=== PATIENT | female | born 1950 | race Caucasian/White ===

== ENCOUNTER 2021-02-25 16:09 | Inpatient (IN) | payer MEDICARE, BC ==
[~2021-02-25] VITALS: Ht 162.6 cm; Wt 53.5 kg
--- NOTE | 2021-02-25 16:25 | NUR ---
PT IS IN ROOM #2B. DR BACA EVALUATED THE PT.
[2021-02-25] MEDS ORDERED: ALPR0.5T8 PO (17:06)
[2021-02-25] MEDS ORDERED: LACT1CAP71 PO (17:06)
[2021-02-25] MEDS ORDERED: ASCO500T10 PO (17:06)
[2021-02-25] MEDS ORDERED: MAGN296S70 PO (17:06)
[2021-02-25] MEDS ORDERED: MULT-1251 PO (17:06)
[2021-02-25] MEDS ORDERED: FLUT16SP16 NS (17:06)
[2021-02-25] MEDS ORDERED: GABA600T12 PO ×2 (17:06)
[2021-02-25] MEDS ORDERED: DEXL60CA3 PO (17:06)
[2021-02-25] MEDS ORDERED: KETAMINE ×2 (17:06)
[2021-02-25] MEDS ORDERED: BUTA1TAB52 PO (17:06)
[2021-02-25] MEDS ORDERED: SUCR1ORA PO (17:06)
[2021-02-25] MEDS ORDERED: MIRA50TA PO (17:06)
[2021-02-25] MEDS ORDERED: CARB200T PO (17:06)
[2021-02-25] MEDS ORDERED: LANS30CA54 PO (17:06)
[2021-02-25] MEDS ORDERED: MONT10TA33 PO (17:06)
[2021-02-25] MEDS ORDERED: PLEC3TAB2 PO (17:06)
[2021-02-25] MEDS ORDERED: DIAZ10TA4 PO (17:06)
[2021-02-25] MEDS ORDERED: MIRT-94 PO (17:06)
[2021-02-25] MEDS ORDERED: ESZO3TAB27 PO (17:06)
[2021-02-25] MEDS ORDERED: LISD50CA2 PO (17:06)
[2021-02-25] MEDS ORDERED: LEVO5TAB13 PO (17:06)
[2021-02-25] MEDS ORDERED: CARI350T27 PO (17:06)
[2021-02-25] MEDS ORDERED: QUET50TA15 PO (17:06)
[2021-02-25] MEDS ORDERED: PILO5TAB10 PO (17:06)
[2021-02-25] MEDS ORDERED: ESCI20TA PO (17:06)
[2021-02-25] MEDS ORDERED: CYCL30DR EACHEYE (17:06)
[2021-02-25] MEDS ORDERED: FAMO40TA7 PO (17:06)
[2021-02-25] MEDS ORDERED: HYDR-3641 PO (17:06)
[2021-02-25] MEDS ORDERED: AMIT10TA6 PO (17:06)
[2021-02-25] MEDS ORDERED: OXYC-133 PO (17:06)
[2021-02-25] MEDS ORDERED: CLON0.1T PO (17:06)
--- NOTE | 2021-02-25 17:12 | NUR ---
REPORT WAS GIVEN TO MHU RN BY BEBE TURNER. PT WAS TRANSFERED TO U ROOM #145.
[2021-02-25 17:32] VITALS: BP 148/80
[2021-02-25] MEDS ORDERED: MAG HYDROX/AL HYDROX/SIMETH 30 ML LIQUID UDC PO PRN (17:45)
[2021-02-25] MEDS ORDERED: SUCRALFATE 1 G/10 ML LIQUID UDC PO PRN (18:15)
[2021-02-25] MEDS ORDERED: BUTALB/ACETAMINOPHEN/CAFFEINE CAPSULE PO PRN (18:15)
--- NOTE | 2021-02-25 18:31 | NUR ---
ADMISSION NOTE: Patient was admitted to MHU room 145-B from the ER accompanied by nursing staff in a wheelchair. Patient admitted with her own FWW, patient's belongings and valuables were inventoried with patient and placed in contraband locker. Patient admitted with multiple bottles of narcotic analgesic medication which was inventoried by nursing staff, sealed in envelop, and sent to pharmacy. Patient's skin assessment completed by nursing staff, skin is intact. Patient provided with patient's rights handbook and 5150 hold advisement. Upon uumb-dx-sosz assessment, patient is highly anxious, restless, visibly shaking, and for this reason states that she is unable to sign paperwork and unable to eat food and drink fluids because she "feels sick". Patient denies suicidal and homicidal ideation. Patient states she has multiple chronic medical conditions that "are the worst that any man can suffer from" and for these reasons is depressed. Patient is able to contract for safety. Patient is alert and oriented x3. She denies hallucinations of any type. Patient denies a current or history of tobacco use. Denies recreation drug use. Patient is currently being prescribed multiple narcotic medication and benzodiazepine medications from her primary doctor for chronic pain and anxiety.
[2021-02-25 20:14] VITALS: BP 138/52
[2021-02-25] MEDS: LORAZEPAM 1 MG TABLET PO PRN (20:15)
[2021-02-25] MEDS: FAMOTIDINE 20 MG TABLET PO SCH (20:15)
[2021-02-25] MEDS: CULTURELLE CAPSULE PO SCH (20:15)
--- NOTE | 2021-02-25 20:20 | NUR ---
RECEIVED PATIENT IN HER ROOM IN BED. SHE IS NOTED AWAKE A/O X 2, SHE IS NOTED WITH LOW MOOD, ANXIOUS. AFFECT IS BLUNTED. SHE IS NOTED WITHDRAWN. SHE STATED, "I AM HERE BECAUSE I GOT OUT OF MY HOUSE". WHEN ASKED WHY SHE DID IT, SHE SAID, "MANY REASONS BUT I DON'T WANT TO TELL YOU". PATIENT IS REASSURED FOR HER SAFETY. HE WAS GIVEN ATIVAN 1MG PO PRN FOR ANXIETY. SHE WAS OFFERED PO FLUIDS AND SNACKS. V/S STABLE, WILL CONTINUE TO MONITOR.
--- NOTE | 2021-02-25 22:30 | NUR ---
RADIOLOGY STAFF IN THE UNIT READY TO TAKE X-RAY OF PATIENT LEFT FOOT R/T PAIN. HOWEVER, PATIENT REFUSED X RAY. SHE STATED, "I DON'T WANT TO GET EXPOSED, DON'T TOUCH IT, GET OUT". MULTIPLE REDIRECTION GIVEN. SHE WAS INFORMED OF THE IMPORTANCE TO GET AN X RAY OF HER LEFT FOOT TO DETERMINE THE REASON FOR HER PAIN, YET INEFFECTIVE. SHE STATED,"I DON'T NEED X RAY, I HAVE THIS PAIN FOR A LONG TIME". WILL CONTINUE TO OFFER X RAY OF HER LEFT FOOT/
[2021-02-25] MEDS: TEMAZEPAM 7.5 MG CAPSULE PO PRN (23:31)
[2021-02-26] MEDS: OXYCODONE HCL 5 MG TABLET PO PRN ×3 (01:34→22:55)
[2021-02-26] MEDS: ACETAMINOPHEN 325 MG TABLET PO PRN (04:04)
[2021-02-26] MEDS: LORAZEPAM 1 MG TABLET PO PRN ×2 (04:38→13:02)
[2021-02-26] MEDS: PANTOPRAZOLE SODIUM 40 MG TABLET.DR PO SCH (06:47)
[2021-02-26 07:30] VITALS: BP 138/67
[2021-02-26 07:47] LABS: HEMATOCRIT 38.7 % (31.2-41.9); MEAN CORPUSCULAR HEMOGLOBIN 30.2 uug (24.7-32.8); MEAN CORPUSCULAR VOLUME 89.5 fL (75.5-95.3); PLATELET COUNT (AUTO) 185 K/uL (179-408)
[2021-02-26 08:15] LABS: BILIRUBIN,TOTAL 0.3 mg/dL (0.2-1.0); CREATININE 0.7 mg/dL (0.6-1.3); POTASSIUM 4.1 mmol/L (3.5-5.1); TOTAL PROTEIN, SERUM 7.2 g/dL (6.4-8.2)
[2021-02-26] MEDS: GABAPENTIN 300 MG CAPSULE PO SCH ×2 (08:45→17:03)
[2021-02-26] MEDS: CULTURELLE CAPSULE PO SCH ×2 (08:45→21:25)
[2021-02-26] MEDS: FLUTICASONE PROP NASAL SPRAY 16 GM BOTTLE NS SCH ×2 (08:46→17:03)
[2021-02-26] MEDS: CLONIDINE HCL 0.1 MG TABLET PO SCH ×3 (08:46→17:03)
[2021-02-26 15:19] VITALS: BP 123/59
[2021-02-26] MEDS: MONTELUKAST SODIUM 10 MG TABLET PO SCH (17:04)
[2021-02-26] MEDS: CLONAZEPAM 0.5 MG TABLET PO SCH (17:59)
[2021-02-26 19:44] VITALS: BP 118/52
[2021-02-26] MEDS: FAMOTIDINE 20 MG TABLET PO SCH (21:25)
[2021-02-26] MEDS: TRAZODONE 50 MG TABLET PO SCH (21:25)
[2021-02-26] MEDS: TEMAZEPAM 7.5 MG CAPSULE PO PRN (22:55)
[2021-02-27 07:51] VITALS: BP 123/53
[2021-02-27] MEDS: FLUTICASONE PROP NASAL SPRAY 16 GM BOTTLE NS SCH ×2 (08:50→16:46)
[2021-02-27] MEDS: CLONAZEPAM 0.5 MG TABLET PO SCH ×3 (08:51→16:48)
[2021-02-27] MEDS: SERTRALINE HCL 50 MG TABLET PO SCH (08:51)
[2021-02-27] MEDS: CLONIDINE HCL 0.1 MG TABLET PO SCH ×3 (08:51→16:47)
[2021-02-27] MEDS: CULTURELLE CAPSULE PO SCH ×2 (08:52→20:20)
[2021-02-27] MEDS: GABAPENTIN 300 MG CAPSULE PO SCH ×2 (08:53→16:48)
[2021-02-27] MEDS: PANTOPRAZOLE SODIUM 40 MG TABLET.DR PO SCH (09:01)
--- NOTE | 2021-02-27 10:47 | NUR ---
Dr. Lucero was called to be notified about this patient 5150 hold that is up today at 17:10.
--- NOTE | 2021-02-27 10:49 | NUR ---
Dr. Lucero was notified about this patient 5051 hold that is up today at 10:45 am. Addendum: 02/27/21 at 1053 by IDALIA ROSENBAUM RN Dr. Lucero was called and notified at 10:45 am about this patient 5150 hold that is up today at 17:10.
--- NOTE | 2021-02-27 11:16 | NUR ---
ANN MARIE Initial Discharge Note Pt currently resides home at [address] [place] [address] and patient would like to return home. Per patient's DPOA, he would like doctor to discuss possibility of SNF placement. DPOA stated he feels that would be a better alternative for patient. ANN MARIE will continue to work with pt, family, and MD to ensure safe and proper discharge planning.
--- NOTE | 2021-02-27 11:25 | NUR ---
Firearms Report: Rn Cardiac Rehab completed and submitted a [employer] firearms report for 5150 danger to self and grave disability certifications. A copy of report has been placed in patient chart.
--- NOTE | 2021-02-27 11:27 | NUR ---
SW Family Contact SW spoke with patient's DPOA Samanjeannine Oh [phone] to gather collateral information and discuss discharge planning.
[2021-02-27] MEDS ORDERED: SUCRALFATE 1 G TABLET PO PRN (15:45)
--- NOTE | 2021-02-27 16:17 | NUR ---
Received patient awake in her room. A/O X 2 to person, place. Pt. [id number] is anxious, labile, needy, suspicious with medications. Ambulates with walker, unsteady gait. Pt. is encourage to vent feelings. Fall and safety precautions implemented.
[2021-02-27 16:54] VITALS: BP 129/58
[2021-02-27] MEDS: MONTELUKAST SODIUM 10 MG TABLET PO SCH (17:08)
[2021-02-27] MEDS: ENSURE ENLIVE (VAN) 240 ML LIQUID PO SCH (17:09)
[2021-02-27] MEDS: FAMOTIDINE 20 MG TABLET PO SCH (20:20)
[2021-02-27] MEDS: TRAZODONE 50 MG TABLET PO SCH (20:22)
[2021-02-27 21:05] VITALS: BP 134/77
[2021-02-27] MEDS: TEMAZEPAM 7.5 MG CAPSULE PO PRN (21:52)
[2021-02-28 07:30] VITALS: BP 111/57
[2021-02-28] MEDS: CULTURELLE CAPSULE PO SCH ×2 (08:42→21:36)
[2021-02-28] MEDS: GABAPENTIN 300 MG CAPSULE PO SCH ×2 (08:42→16:36)
[2021-02-28] MEDS: CLONAZEPAM 0.5 MG TABLET PO SCH ×3 (08:43→16:35)
[2021-02-28] MEDS: ENSURE ENLIVE (VAN) 240 ML LIQUID PO SCH ×3 (08:43→16:35)
[2021-02-28] MEDS: FLUTICASONE PROP NASAL SPRAY 16 GM BOTTLE NS SCH ×2 (08:47→16:34)
[2021-02-28] MEDS: PANTOPRAZOLE SODIUM 40 MG TABLET.DR PO SCH (08:47)
[2021-02-28] MEDS: SERTRALINE HCL 50 MG TABLET PO SCH (08:47)
[2021-02-28] MEDS: CLONIDINE HCL 0.1 MG TABLET PO SCH ×3 (08:54→16:33)
--- NOTE | 2021-02-28 15:57 | NUR ---
Gps/Regional Telecommunications Specialist- Compliant with routine medications. Walking around uses front wheel walker. Found patient in another room, was able to climbed up in a bed that was raised high up. Reoriented patient, back to her room, , safety reviewed and emphasized.
[2021-02-28 16:00] VITALS: BP 97/48
[2021-02-28] MEDS: MONTELUKAST SODIUM 10 MG TABLET PO SCH (16:36)
[2021-02-28 20:04] VITALS: BP 121/47
[2021-02-28] MEDS: TRAZODONE 50 MG TABLET PO SCH (21:37)
[2021-02-28] MEDS: FAMOTIDINE 20 MG TABLET PO SCH (21:37)
[2021-03-01] MEDS: PANTOPRAZOLE SODIUM 40 MG TABLET.DR PO SCH (06:11)
[2021-03-01 07:30] VITALS: BP 135/51
[2021-03-01] MEDS: CULTURELLE CAPSULE PO SCH ×2 (08:32→20:15)
[2021-03-01] MEDS: GABAPENTIN 300 MG CAPSULE PO SCH ×2 (08:32→17:02)
[2021-03-01] MEDS: SERTRALINE HCL 50 MG TABLET PO SCH (08:32)
[2021-03-01] MEDS: CLONIDINE HCL 0.1 MG TABLET PO SCH ×3 (08:33→17:04)
[2021-03-01] MEDS: ENSURE ENLIVE (VAN) 240 ML LIQUID PO SCH ×3 (08:33→17:03)
[2021-03-01] MEDS: FLUTICASONE PROP NASAL SPRAY 16 GM BOTTLE NS SCH ×2 (08:33→17:04)
[2021-03-01] MEDS: CLONAZEPAM 0.5 MG TABLET PO SCH ×3 (08:33→17:03)
[2021-03-01] MEDS: MONTELUKAST SODIUM 10 MG TABLET PO SCH (17:03)
[2021-03-01 17:07] VITALS: BP 126/66
[2021-03-01] MEDS: FAMOTIDINE 20 MG TABLET PO SCH (20:16)
[2021-03-01] MEDS: TRAZODONE 50 MG TABLET PO SCH (20:16)
[2021-03-01 20:26] VITALS: BP 111/50
[2021-03-02] MEDS: PANTOPRAZOLE SODIUM 40 MG TABLET.DR PO SCH (06:10)
[2021-03-02 07:30] VITALS: BP 122/41
[2021-03-02] MEDS: SERTRALINE HCL 50 MG TABLET PO SCH (09:06)
[2021-03-02] MEDS: CULTURELLE CAPSULE PO SCH ×2 (09:06→20:34)
[2021-03-02] MEDS: GABAPENTIN 300 MG CAPSULE PO SCH ×2 (09:06→17:03)
[2021-03-02] MEDS: CLONAZEPAM 0.5 MG TABLET PO SCH ×3 (09:07→17:03)
[2021-03-02] MEDS: FLUTICASONE PROP NASAL SPRAY 16 GM BOTTLE NS SCH ×2 (09:08→17:03)
[2021-03-02] MEDS: CLONIDINE HCL 0.1 MG TABLET PO SCH ×3 (09:08→17:00)
[2021-03-02] MEDS: ENSURE ENLIVE (VAN) 240 ML LIQUID PO SCH ×3 (09:09→17:05)
--- NOTE | 2021-03-02 09:24 | NUR ---
RECEIVED PATIENT IN BED AWAKE ALERT AND ORIENTED HE IS COOPERATIVE BUT IS FORGETFUL SHE IS COMPLIANT WITH MNEDICATIONS AND CARE DR WALLS WAS HERE SEEN PATIENT WITH NO NEW ORDERS AT THIS TIME WILL CONTINUE TO OBSERVE.
[2021-03-02 16:00] VITALS: BP 109/59
--- NOTE | 2021-03-02 17:00 | NUR ---
CLONIDINE HELD 2 TIMED THIS SHIFE SECONDARY TO LOW BLOOD PRESSURE LATEST IS 109/59 WILL ENDORS FOR PARAMETER FROM THE MD.
[2021-03-02] MEDS: MONTELUKAST SODIUM 10 MG TABLET PO SCH (17:03)
--- NOTE | 2021-03-02 18:00 | NUR ---
AMBULATORY ON THE HALLWAY DENIES DISCOMFORTS NOT IN DISTRESS AT THIS TIME.
[2021-03-02 20:00] VITALS: BP 132/66
[2021-03-02] MEDS: TRAZODONE 50 MG TABLET PO SCH (20:35)
[2021-03-02] MEDS: OXYCODONE HCL 5 MG TABLET PO PRN (20:36)
[2021-03-03] MEDS: PANTOPRAZOLE SODIUM 40 MG TABLET.DR PO SCH (06:08)
[2021-03-03 08:01] VITALS: BP 121/67
[2021-03-03] MEDS: CLONIDINE HCL 0.1 MG TABLET PO SCH ×3 (08:31→17:00)
[2021-03-03] MEDS: SERTRALINE HCL 50 MG TABLET PO SCH (08:31)
[2021-03-03] MEDS: CULTURELLE CAPSULE PO SCH ×2 (08:31→20:10)
[2021-03-03] MEDS: CLONAZEPAM 0.5 MG TABLET PO SCH ×3 (08:31→17:04)
[2021-03-03] MEDS: GABAPENTIN 300 MG CAPSULE PO SCH ×2 (08:57→17:04)
[2021-03-03] MEDS: FLUTICASONE PROP NASAL SPRAY 16 GM BOTTLE NS SCH ×2 (09:25→17:05)
[2021-03-03] MEDS: ENSURE ENLIVE (VAN) 240 ML LIQUID PO SCH ×3 (09:25→17:04)
[2021-03-03 15:59] VITALS: BP 96/58
[2021-03-03] MEDS: MONTELUKAST SODIUM 10 MG TABLET PO SCH (17:04)
[2021-03-03 20:00] VITALS: BP 127/49
[2021-03-03] MEDS: HYDROCORTISONE RECTAL SUPP 25 MG EACH RC SCH (20:10)
[2021-03-03] MEDS: TRAZODONE 50 MG TABLET PO SCH (20:10)
[2021-03-03] MEDS: OXYCODONE HCL 5 MG TABLET PO PRN (20:11)
[2021-03-03] MEDS: TEMAZEPAM 7.5 MG CAPSULE PO PRN (21:23)
[2021-03-04] MEDS: LORAZEPAM 1 MG TABLET PO PRN (00:47)
[2021-03-04] MEDS: ACETAMINOPHEN 325 MG TABLET PO PRN (02:21)
[2021-03-04] MEDS: PANTOPRAZOLE SODIUM 40 MG TABLET.DR PO SCH (06:16)
[2021-03-04 07:24] VITALS: BP 124/70
[2021-03-04] MEDS: SERTRALINE HCL 50 MG TABLET PO SCH (08:24)
[2021-03-04] MEDS: FLUTICASONE PROP NASAL SPRAY 16 GM BOTTLE NS SCH ×2 (08:24→17:43)
[2021-03-04] MEDS: CLONIDINE HCL 0.1 MG TABLET PO SCH ×3 (08:25→17:00)
[2021-03-04] MEDS: CLONAZEPAM 0.5 MG TABLET PO SCH ×3 (08:25→17:43)
[2021-03-04] MEDS: GABAPENTIN 300 MG CAPSULE PO SCH ×2 (08:26→17:42)
[2021-03-04] MEDS: HYDROCORTISONE RECTAL SUPP 25 MG EACH RC SCH ×2 (08:27→20:19)
[2021-03-04] MEDS: CULTURELLE CAPSULE PO SCH ×2 (08:27→20:19)
--- NOTE | 2021-03-04 09:03 | NUR ---
SW Family Contact SW contact Vickey Oh ([phone]) and left a voicemail for a call back regarding pt's discharge plan.
[2021-03-04] MEDS: ENSURE ENLIVE (VAN) 240 ML LIQUID PO SCH ×3 (09:08→17:44)
--- NOTE | 2021-03-04 12:49 | NUR ---
Patient BP is 105/38, Clonidine 0.1 mg not given.
--- NOTE | 2021-03-04 15:16 | NUR ---
Received patient awake in her room. A/O X 2 to person, place. Pt. affect is demanding, needy, disorganized, cooperative. Compliant with medications. Ambulates with walker, unsteady gait. Requires more than minimal assistance with ADL. Incontinent. Pt. is encourage to verbalize concerns. Fall and safety precautions implemented.
--- NOTE | 2021-03-04 15:39 | NUR ---
SNF Referral: SW sent clinicals for placement option to [facility] ( and spoke to Kimmy multimedia coordinator who confirmed that the pt is confirmed for placement to the facility upon discharge. ANN MARIE faxed face sheet, h&p, consult notes, last 3 progress notes, medication list, and labs.
[2021-03-04 15:53] VITALS: BP 115/60
--- NOTE | 2021-03-04 16:06 | NUR ---
ANN MARIE Family Contact Update ANN MARIE contacted Vickey RIVERA ([phone]) and discussed discharge updates and provided the facility information. Vickey is aware and agreeable with the discharge plans.
[2021-03-04] MEDS: OXYCODONE HCL 5 MG TABLET PO PRN (17:04)
[2021-03-04] MEDS: MONTELUKAST SODIUM 10 MG TABLET PO SCH (17:42)
--- NOTE | 2021-03-04 17:54 | NUR ---
Blood pressure 96/42, Clonidine 0.1 mg not given.
--- NOTE | 2021-03-04 18:05 | NUR ---
PRN Oxycodone 10 mg was given at 17:04 for left foot pain, effective.
[2021-03-04 20:00] VITALS: BP 112/59
[2021-03-04] MEDS ORDERED: TRAZODONE 100 MG TABLET PO SCH (21:00)
[2021-03-04] MEDS: TEMAZEPAM 7.5 MG CAPSULE PO PRN (22:35)
--- NOTE | 2021-03-04 23:48 | NUR ---
Somatic compliants:unable to fall asleep/room was too cold/dry eyes.A sleeping pill was given,room temp.was adjusted and will endorse to the next shift to F/U with MD regarding of dry eyes. Will continue to monitor.
[2021-03-05] MEDS: PANTOPRAZOLE SODIUM 40 MG TABLET.DR PO SCH (06:39)
[2021-03-05 07:30] VITALS: BP 103/52
[2021-03-05] MEDS: MAGNESIUM HYDROXIDE 30 ML LIQUID UDC PO PRN (08:34)
[2021-03-05] MEDS: SERTRALINE HCL 50 MG TABLET PO SCH (08:34)
[2021-03-05] MEDS: GABAPENTIN 300 MG CAPSULE PO SCH ×2 (08:34→18:02)
[2021-03-05] MEDS: CLONAZEPAM 0.5 MG TABLET PO SCH ×3 (08:34→18:01)
[2021-03-05] MEDS: CLONIDINE HCL 0.1 MG TABLET PO SCH ×3 (08:36→17:00)
[2021-03-05] MEDS: HYDROCORTISONE RECTAL SUPP 25 MG EACH RC SCH ×2 (08:37→21:36)
[2021-03-05] MEDS: ENSURE ENLIVE (VAN) 240 ML LIQUID PO SCH ×3 (08:39→17:00)
[2021-03-05] MEDS: CULTURELLE CAPSULE PO SCH ×2 (08:39→21:36)
[2021-03-05] MEDS: FLUTICASONE PROP NASAL SPRAY 16 GM BOTTLE NS SCH ×2 (08:44→17:00)
--- NOTE | 2021-03-05 09:23 | NUR ---
GPS: PT ALERT AND VERBALLY RESPONSIVE. NO ANXIOUSNESS NOTED. PT CALM AND WAS SEEN BY DR SHAHID AGUILLON RE: PT COMPLAINING OF DRY EYES. MD ORDERED ARTIFICIAL TEARS. PER MD, IF PT CAN HAVE SOMEONE DROP THE EYEDROPS HERE THAT PT USES AT HOME, SHE CAN USE IT ONCE A DAY. PER PT, SHE LIVES FAR AWAY AND NO ONE CAN BRING IT. PT HAVE PAIN CONSULT ORDER FROM MD SHAHID AGUILLON PT COMPLAINS OF LEFT FOOT PAIN.
[2021-03-05 15:11] VITALS: BP 102/58
[2021-03-05] MEDS: ACETAMINOPHEN 325 MG TABLET PO PRN (15:14)
[2021-03-05] MEDS: POLYVINYL ALCOHOL OPHT DROPS 15 ML BOTTLE EACHEYE PRN (18:01)
[2021-03-05] MEDS: MONTELUKAST SODIUM 10 MG TABLET PO SCH (18:03)
--- NOTE | 2021-03-05 18:57 | NUR ---
GPS: PT GETS AGITATED WHEN NEEDS ARE NOT MET. VERBALLY ABUSIVE AT TIMES. PT NEEDY AND ATTENTION SEEKER. COOPERATIVE WITH CARE. MANIPULATIVE. TAKES MEDICATION WHEN EXPLAINED WHAT IT IS FOR.
[2021-03-05 20:37] VITALS: BP 108/54
[2021-03-05] MEDS: TRAZODONE 100 MG TABLET PO SCH (21:36)
[2021-03-05] MEDS: TEMAZEPAM 7.5 MG CAPSULE PO PRN (23:25)
[2021-03-06] MEDS: LORAZEPAM 1 MG TABLET PO PRN (01:04)
[2021-03-06 07:30] VITALS: BP 130/61
[2021-03-06] MEDS: PANTOPRAZOLE SODIUM 40 MG TABLET.DR PO SCH (07:51)
[2021-03-06] MEDS: CLONIDINE HCL 0.1 MG TABLET PO SCH ×3 (08:51→17:00)
[2021-03-06] MEDS: ENSURE ENLIVE (VAN) 240 ML LIQUID PO SCH ×3 (08:52→17:00)
[2021-03-06] MEDS: SERTRALINE HCL 50 MG TABLET PO SCH (08:52)
[2021-03-06] MEDS: CLONAZEPAM 0.5 MG TABLET PO SCH ×3 (08:52→18:15)
[2021-03-06] MEDS: FLUTICASONE PROP NASAL SPRAY 16 GM BOTTLE NS SCH ×2 (08:52→17:00)
[2021-03-06] MEDS: CULTURELLE CAPSULE PO SCH ×2 (08:52→21:08)
[2021-03-06] MEDS: HYDROCORTISONE RECTAL SUPP 25 MG EACH RC SCH ×2 (08:53→21:08)
[2021-03-06] MEDS: GABAPENTIN 300 MG CAPSULE PO SCH (08:55)
[2021-03-06] MEDS: OXYCODONE HCL 5 MG TABLET PO PRN ×2 (09:33→18:35)
[2021-03-06] MEDS: MAGNESIUM HYDROXIDE 30 ML LIQUID UDC PO PRN (12:48)
[2021-03-06] MEDS: MIRALAX 17 GM POWD.PACK PO SCH (14:56)
[2021-03-06 16:00] VITALS: BP 100/63
[2021-03-06] MEDS ORDERED: GABAPENTIN 300 MG CAPSULE PO SCH (18:15)
[2021-03-06] MEDS: MONTELUKAST SODIUM 10 MG TABLET PO SCH (18:16)
[2021-03-06] MEDS: POLYVINYL ALCOHOL OPHT DROPS 15 ML BOTTLE EACHEYE PRN (18:20)
[2021-03-06] MEDS: BACLOFEN 10 MG TABLET PO SCH ×3 (19:49→21:27)
[2021-03-06 20:00] VITALS: BP 115/60
[2021-03-06] MEDS: TRAZODONE 100 MG TABLET PO SCH (21:08)
[2021-03-06] MEDS: TEMAZEPAM 7.5 MG CAPSULE PO PRN (23:39)
[2021-03-07] MEDS: LORAZEPAM 1 MG TABLET PO PRN ×2 (01:30→16:49)
[2021-03-07 07:30] VITALS: BP 94/57
[2021-03-07] MEDS: CLONIDINE HCL 0.1 MG TABLET PO SCH ×3 (09:00→16:49)
--- NOTE | 2021-03-07 09:14 | NUR ---
ANN MARIE Initial Discharge Note Pt currently resides at home alone at [address] [place] [id number] ([phone]). ANN MARIE contacted [facility] ([phone]) and spoke with Theresa Phelps, clinical manufactured buildings supervisor, who confirmed pt was residing at his residence alone. Pt continues to be supported by [facility] and is able to return to his apartment when he is ready for discharge. ANN MARIE will work with pt, case management social worker, and MD to ensure a safe and proper discharge. Addendum: 03/07/21 at 918 by ZHANNA Jones Please disregard this note as it was incorrectly entered. Addendum: 03/07/21 at 932 by ZHANNA Jones Above notes were entered in error and are not applicable.
[2021-03-07] MEDS: BACLOFEN 10 MG TABLET PO SCH ×5 (09:21→22:56)
[2021-03-07] MEDS: GABAPENTIN 400 MG CAPSULE PO SCH ×3 (09:21→16:48)
[2021-03-07] MEDS: SERTRALINE HCL 50 MG TABLET PO SCH (09:21)
[2021-03-07] MEDS: ENSURE ENLIVE (VAN) 240 ML LIQUID PO SCH ×3 (09:22→16:50)
[2021-03-07] MEDS: CLONAZEPAM 0.5 MG TABLET PO SCH ×3 (09:22→16:49)
[2021-03-07] MEDS: MIRALAX 17 GM POWD.PACK PO SCH (09:22)
[2021-03-07] MEDS: HYDROCORTISONE RECTAL SUPP 25 MG EACH RC SCH ×2 (09:25→20:28)
[2021-03-07] MEDS: FLUTICASONE PROP NASAL SPRAY 16 GM BOTTLE NS SCH ×2 (09:25→16:51)
[2021-03-07] MEDS: POLYVINYL ALCOHOL OPHT DROPS 15 ML BOTTLE EACHEYE PRN ×2 (09:26→16:51)
[2021-03-07] MEDS: CULTURELLE CAPSULE PO SCH ×5 (09:26→22:56)
[2021-03-07] MEDS: PANTOPRAZOLE SODIUM 40 MG TABLET.DR PO SCH (09:27)
[2021-03-07] MEDS: OXYCODONE HCL 5 MG TABLET PO PRN ×3 (09:36→22:31)
--- NOTE | 2021-03-07 09:38 | NUR ---
Psychosocial Assessment Error Psychosocial assessment entered on 03/07/21 was entered in error and are not applicable.
[2021-03-07] MEDS: MAGNESIUM HYDROXIDE 30 ML LIQUID UDC PO PRN (13:55)
[2021-03-07 16:00] VITALS: BP 112/44
[2021-03-07] MEDS: MONTELUKAST SODIUM 10 MG TABLET PO SCH (16:50)
[2021-03-07] MEDS ORDERED: FLEET ENEMA 133 ML BOTTLE RC PRN (18:00)
--- NOTE | 2021-03-07 18:01 | NUR ---
GPS: PT COMPLAINT OF CONSTIPATION X3 DAYS. MILK OF MAGNESIA AND COLACE GIVEN BUT NOT RESULT. PER PT REQUEST TO HAVE FLEET ENEMA. MD ORDER CARRIED OUT. PT NOTIFIED.
--- NOTE | 2021-03-07 19:27 | NUR ---
GPS: PT REFUSED FLEET ENEMA. SHE STATED " I DONT LIKE IT COZ I HAVE HEMORHOIDS. WHAT I NEED IS SOAP BOOM ENEMA".
[2021-03-07 19:59] VITALS: BP 101/52
[2021-03-07] MEDS: TRAZODONE 100 MG TABLET PO SCH (20:28)
[2021-03-07] MEDS: TEMAZEPAM 7.5 MG CAPSULE PO PRN (22:12)
--- NOTE | 2021-03-08 05:48 | NUR ---
The patient was up and down all during the night, coming to the desk and asking for medications, juices, this and that. The patient has not showered for 1 week and refuses to do so. The patient is demanding and initialed. Multiple attempts to redirect the patient were made and to explain the unit policies. The patient denies SI and is energetic. Continuing to monitor for safety, and to treat pain as needed. Patient does not respond to boundaries.
[2021-03-08] MEDS: PANTOPRAZOLE SODIUM 40 MG TABLET.DR PO SCH (06:31)
[2021-03-08 07:30] VITALS: BP 112/54
[2021-03-08] MEDS: SERTRALINE HCL 50 MG TABLET PO SCH (08:51)
[2021-03-08] MEDS: GABAPENTIN 400 MG CAPSULE PO SCH ×3 (08:51→16:55)
[2021-03-08] MEDS: BACLOFEN 10 MG TABLET PO SCH (08:52)
[2021-03-08] MEDS: ENSURE ENLIVE (VAN) 240 ML LIQUID PO SCH ×3 (08:52→16:55)
[2021-03-08] MEDS: CULTURELLE CAPSULE PO SCH (08:52)
[2021-03-08] MEDS: CLONAZEPAM 0.5 MG TABLET PO SCH ×3 (08:52→16:55)
[2021-03-08] MEDS: FLUTICASONE PROP NASAL SPRAY 16 GM BOTTLE NS SCH ×2 (08:53→16:55)
[2021-03-08] MEDS: CLONIDINE HCL 0.1 MG TABLET PO SCH ×3 (08:57→16:55)
[2021-03-08] MEDS: MIRALAX 17 GM POWD.PACK PO SCH (08:57)
[2021-03-08] MEDS: HYDROCORTISONE RECTAL SUPP 25 MG EACH RC SCH ×3 (09:12→21:36)
--- NOTE | 2021-03-08 09:59 | NUR ---
PT RECEIVED AMBULATING UNIT HALLWAY WITH FWW. PT IS QUITE NEEDY, DEMANDING, FORGETFUL, ATTENTION SEEKING, AND INTRUSIVE. DISORGANIZED AND VERY POOR INSIGHT. COMPLIANT WITH MEDICATIONS AT THIS TIME. DENIES PAIN OR DISCOMFORT. DENIES SI.
--- NOTE | 2021-03-08 11:21 | NUR ---
PT EXCESSIVELY NEEDY AT THIS TIME. FREQUENTLY REQUESTING A MYRIAD OF THINGS: SOCKS, PHONE, NEW CLOTHES, MEDICATIONS, ETC. STAFF CANNOT SATISFY PT'S NEEDS. PT ALSO VERBALLY ABUSIVE AT THIS TIME. CALLING CO OP A "BITCH" AND A "FAT ASS THAT LOOKS LIKE A MAN." PT THREATENING STAFF THAT SHE HAS SO MUCH MONEY, SHE CAN "OWN" ALL OF US AND WILL NYA THE STAFF AND HOSPITAL FOR FUN.
[2021-03-08] MEDS: OXYCODONE HCL 5 MG TABLET PO PRN ×2 (12:23→21:51)
[2021-03-08 17:12] VITALS: BP 119/46
[2021-03-08] MEDS: MONTELUKAST SODIUM 10 MG TABLET PO SCH (17:29)
[2021-03-08 19:49] VITALS: BP 106/51
[2021-03-08] MEDS: TRAZODONE 100 MG TABLET PO SCH (21:36)
[2021-03-08] MEDS ORDERED: OLANZAPINE 10 MG VIAL IM PRN (22:30)
[2021-03-08] MEDS: TEMAZEPAM 7.5 MG CAPSULE PO PRN (23:25)
[2021-03-09] MEDS: LORAZEPAM 1 MG TABLET PO PRN (00:31)
[2021-03-09 02:29] LABS: *BILIRUBIN,URIN NEGATIVE (NEGATIVE); *BLOOD, URINE NEGATIVE (NEGATIVE); *KETONES,URINE NEGATIVE (NEGATIVE); *UROBILINOGEN,URINE 0.2 E.U./dl (NORMAL); LEUKOCYTE ESTERASE ,URINE 2+ (NEGATIVE); NITRITE, URINE NEGATIVE (NEGATIVE); UGLUCOSE NEGATIVE (NEGATIVE)
[2021-03-09 02:35] LABS: *CLARITY,URINE HAZY (CLEAR); *COLOR,URINE STRAW (YELLOW)
[2021-03-09 03:01] LABS: BACTERIA,URINE FEW /HPF (NONE SEEN); RBC,URINE 0-3 /HPF (0-3); SQUAMOUS EPITHELIAL CELL,UR MODERATE /HPF (NONE SEEN)
--- NOTE | 2021-03-09 04:51 | NUR ---
Received to care, needy and attention seeking, but not verbally abusive, or manipulative, as reported last shift. PRN Oxy IR was given at 2150, for left foot/douglas pain, with good results, She also received PRN Restoril for insomnia, and Ativan, for anxiety. She eventually went to sleep, and continues to sleep, at this time. no distress noted.
[2021-03-09] MEDS: PANTOPRAZOLE SODIUM 40 MG TABLET.DR PO SCH ×2 (06:54→06:58)
[2021-03-09] MEDS: POLYVINYL ALCOHOL OPHT DROPS 15 ML BOTTLE EACHEYE PRN ×2 (06:56→08:58)
[2021-03-09 07:45] VITALS: BP 91/43
[2021-03-09] MEDS: CULTURELLE CAPSULE PO SCH ×2 (08:56→20:05)
[2021-03-09] MEDS: MIRALAX 17 GM POWD.PACK PO SCH (08:56)
[2021-03-09] MEDS: CLONAZEPAM 0.5 MG TABLET PO SCH ×3 (08:56→16:12)
[2021-03-09] MEDS: GABAPENTIN 400 MG CAPSULE PO SCH ×3 (08:56→16:12)
[2021-03-09] MEDS: CLONIDINE HCL 0.1 MG TABLET PO SCH ×3 (08:57→16:13)
[2021-03-09] MEDS: FLUTICASONE PROP NASAL SPRAY 16 GM BOTTLE NS SCH ×2 (08:57→16:13)
[2021-03-09] MEDS: ENSURE ENLIVE (VAN) 240 ML LIQUID PO SCH ×3 (08:57→16:12)
[2021-03-09] MEDS: HYDROCORTISONE RECTAL SUPP 25 MG EACH RC SCH ×2 (08:59→20:27)
[2021-03-09] MEDS: BACLOFEN 10 MG TABLET PO SCH ×2 (09:41→20:02)
[2021-03-09] MEDS: OXYCODONE HCL 5 MG TABLET PO PRN ×3 (09:42→20:03)
[2021-03-09] MEDS: MAGNESIUM HYDROXIDE 30 ML LIQUID UDC PO PRN (12:15)
[2021-03-09 16:18] VITALS: BP 94/58
--- NOTE | 2021-03-09 16:54 | NUR ---
GPS: Nursing Notes: Destructive Behavior to Self: Patient is awake and responding to her name, constantly coming to the nursing station with somatic complains, believes that she is constipated, "I did not have a BM for ten days, but she did have a BM last night, believes that she does not getting her Miralax every day, redirected during shift, but fixated about constipation, constantly coming to nursing station asking for narcotics, verbal abusive when setting limits, "Fuck you...", "I told to a specialist every day on the phone.. Ativan is not a narcotic..", continue to offer her medications per MD order, patient getting Klonopin routinely, but believes that she is not getting the medication, gets easily irritable and verbal abusive when redirected, unable to formulate a viable plan for self care, continue with treatment plan.
[2021-03-09] MEDS: MONTELUKAST SODIUM 10 MG TABLET PO SCH (17:09)
[2021-03-09 20:00] VITALS: BP 123/60
[2021-03-09] MEDS: TRAZODONE 100 MG TABLET PO SCH (20:01)
[2021-03-09] MEDS: ACETAMINOPHEN 325 MG TABLET PO PRN (21:06)
[2021-03-09] MEDS: TEMAZEPAM 7.5 MG CAPSULE PO PRN (21:35)
--- NOTE | 2021-03-10 04:26 | NUR ---
Received to care, agitated and needy, and became hostile and angry when redirected, and when her needs were not immediately met. She was verbally abusive when questioned regarding her needs, not wanting to discuss anything, until her narcotic pain Meds were given. She was told that before she could be medicated, this junior copywriter needed to know what her vital signs were, and needed to see the other patients, and to be sure that they were all safe, and in no distress. She became to yell, and would not listen to reason. She calmed down after a few minutes, and her Oxy IR was given at 2002. She still remained needy, with multiple somatic complaints and various requests, including personal supplies, snacks, and wanting her toilet flushed. She was more directable, but continued to interrupt in the care of other patients, even after all her needs and requests were met, and carried out. She was compliant with her medications, and received PRN Restoril for insomnia, at her request, at 2135. She has slept well throughout the night. Even though she came out a few times since then, asking for things, she was calmer and more reasonable and patient, exhibiting better self control, and accepting set limits well.
[2021-03-10 05:45] VITALS: BP 114/64
[2021-03-10] MEDS: LORAZEPAM 1 MG TABLET PO PRN ×2 (05:48→20:16)
--- NOTE | 2021-03-10 05:48 | NUR ---
PRN Ativan, given for anxiety
[2021-03-10] MEDS: PANTOPRAZOLE SODIUM 40 MG TABLET.DR PO SCH (06:32)
--- NOTE | 2021-03-10 06:33 | NUR ---
Appears calmer, now
[2021-03-10 07:36] VITALS: BP 97/45
[2021-03-10] MEDS: CULTURELLE CAPSULE PO SCH ×2 (08:41→20:15)
[2021-03-10] MEDS: BACLOFEN 10 MG TABLET PO SCH ×2 (08:41→20:16)
[2021-03-10] MEDS: GABAPENTIN 400 MG CAPSULE PO SCH ×3 (08:41→17:02)
[2021-03-10] MEDS: ENSURE ENLIVE (VAN) 240 ML LIQUID PO SCH ×3 (08:42→17:02)
[2021-03-10] MEDS: CLONAZEPAM 0.5 MG TABLET PO SCH ×3 (08:42→17:01)
[2021-03-10] MEDS: CLONIDINE HCL 0.1 MG TABLET PO SCH ×3 (08:42→17:00)
[2021-03-10] MEDS: POLYVINYL ALCOHOL OPHT DROPS 15 ML BOTTLE EACHEYE PRN (08:43)
[2021-03-10] MEDS: MIRALAX 17 GM POWD.PACK PO SCH (08:43)
[2021-03-10] MEDS: FLUTICASONE PROP NASAL SPRAY 16 GM BOTTLE NS SCH ×2 (08:43→17:03)
[2021-03-10] MEDS: HYDROCORTISONE RECTAL SUPP 25 MG EACH RC SCH ×2 (08:43→20:16)
[2021-03-10] MEDS: OXYCODONE HCL 5 MG TABLET PO PRN ×2 (10:09→16:37)
[2021-03-10 15:52] VITALS: BP 106/52
[2021-03-10] MEDS: MONTELUKAST SODIUM 10 MG TABLET PO SCH (17:53)
[2021-03-10] MEDS: TRAZODONE 100 MG TABLET PO SCH (20:16)
[2021-03-10 20:41] VITALS: BP 144/54
[2021-03-10] MEDS: TEMAZEPAM 7.5 MG CAPSULE PO PRN (23:00)
[2021-03-11] MEDS: PANTOPRAZOLE SODIUM 40 MG TABLET.DR PO SCH (06:38)
[2021-03-11 07:34] VITALS: BP 109/50
[2021-03-11] MEDS: BACLOFEN 10 MG TABLET PO SCH ×2 (08:25→20:04)
[2021-03-11] MEDS: MIRALAX 17 GM POWD.PACK PO SCH (08:25)
[2021-03-11] MEDS: HYDROCORTISONE RECTAL SUPP 25 MG EACH RC SCH ×2 (08:26→20:05)
[2021-03-11] MEDS: CLONAZEPAM 0.5 MG TABLET PO SCH ×3 (08:26→16:59)
[2021-03-11] MEDS: GABAPENTIN 400 MG CAPSULE PO SCH ×3 (08:26→16:58)
[2021-03-11] MEDS: CULTURELLE CAPSULE PO SCH ×2 (08:26→20:04)
[2021-03-11] MEDS: CLONIDINE HCL 0.1 MG TABLET PO SCH ×3 (08:27→16:59)
[2021-03-11] MEDS: ENSURE ENLIVE (VAN) 240 ML LIQUID PO SCH ×3 (08:27→17:00)
[2021-03-11] MEDS: FLUTICASONE PROP NASAL SPRAY 16 GM BOTTLE NS SCH ×2 (08:27→16:59)
[2021-03-11] MEDS: OXYCODONE HCL 5 MG TABLET PO PRN ×2 (11:11→16:58)
--- NOTE | 2021-03-11 15:25 | NUR ---
GPS: Nursing Notes: Destructive Behavior to Self: Patient is awake and responding to her name, overly demanding, needy, believes that the doctor never came to see her, argumentative, redirected and setting limits during shift, but continue to be resistant with nursing care, gets easily irritable when her demands are not met immediately, unable to formulate a viable plan for self care, continue to monitor for safety, continue to be compliant with her medications, continue with treatment plan.
[2021-03-11 16:08] VITALS: BP 144/52
[2021-03-11] MEDS: ACETAMINOPHEN 325 MG TABLET PO PRN (16:54)
[2021-03-11] MEDS: MONTELUKAST SODIUM 10 MG TABLET PO SCH (17:04)
[2021-03-11] MEDS: EYE EACHEYE SCH (18:50)
[2021-03-11] MEDS: RESTASIS 0.05% EACHEYE SCH (18:50)
[2021-03-11 20:02] VITALS: BP 101/51
[2021-03-11] MEDS: TRAZODONE 100 MG TABLET PO SCH (20:04)
[2021-03-11 20:16] VITALS: BP 117/60
[2021-03-11] MEDS: TEMAZEPAM 7.5 MG CAPSULE PO PRN (23:38)
[2021-03-12] MEDS: OXYCODONE HCL 5 MG TABLET PO PRN ×2 (03:15→12:22)
[2021-03-12] MEDS: PANTOPRAZOLE SODIUM 40 MG TABLET.DR PO SCH (06:25)
--- NOTE | 2021-03-12 06:49 | NUR ---
remain needy,but cooperative with meds and care. slept 4.30 hrs through the night.
[2021-03-12 07:30] VITALS: BP 109/60
[2021-03-12] MEDS: MIRALAX 17 GM POWD.PACK PO SCH (08:52)
[2021-03-12] MEDS: GABAPENTIN 400 MG CAPSULE PO SCH ×2 (08:53→12:21)
[2021-03-12] MEDS: HYDROCORTISONE RECTAL SUPP 25 MG EACH RC SCH (08:53)
[2021-03-12 08:54] VITALS: BP 109/60
[2021-03-12] MEDS: CLONIDINE HCL 0.1 MG TABLET PO SCH ×2 (08:54→12:23)
[2021-03-12] MEDS: BACLOFEN 10 MG TABLET PO SCH (08:54)
[2021-03-12] MEDS: CULTURELLE CAPSULE PO SCH (08:54)
[2021-03-12] MEDS: CLONAZEPAM 0.5 MG TABLET PO SCH ×2 (08:55→12:21)
[2021-03-12] MEDS: RESTASIS 0.05% EACHEYE SCH (08:55)
[2021-03-12] MEDS: EYE EACHEYE SCH (08:55)
[2021-03-12] MEDS: FLUTICASONE PROP NASAL SPRAY 16 GM BOTTLE NS SCH (08:57)
[2021-03-12] MEDS: ENSURE ENLIVE (VAN) 240 ML LIQUID PO SCH ×2 (08:58→12:23)
--- NOTE | 2021-03-12 09:44 | NUR ---
ANN MARIE Discharge Note Pt will be discharged to [facility] [place] [address] ([phone]) via Ambulance transportation at 1PM. ANN MARIE spoke with Damaris, admin coordinator at the facility who states they are ready to accept the patient today. Pt is aware and agreeable with discharge plans. Pt is alert and oriented x2, is unable to plan for self-care at this time; however, is willing to accept care at SNF. Pt denies any suicidal or homicidal ideation. Pt will follow-up at the facility with Psychiatrist, Dr. Lucero and Drug Department Worker, Dr. Antonio. Pt presents with calm mood and congruent affect. Pts DPOA Vickey Oh ([phone]) is aware and agreeable with discharge plan.
[2021-03-12] MEDS: ACETAMINOPHEN 325 MG TABLET PO PRN (11:17)
--- NOTE | 2021-03-12 13:26 | NUR ---
ANN MARIE Discharge Note Update Pt will be discharged to Home [address], [place] [address]. ANN MARIE spoke with Abbey ([phone]) who stated she will be providing transportation for the pt from the hospital to the pts resident. Pt is aware and agreeable with discharge plans. Pt is alert and oriented x2, is unable to plan for self-care at this time; however, pt will be receiving 24hr care per her care provider Abbey and pts DPOA. Pt denies any suicidal or homicidal ideation. Pt presents with calm mood and congruent affect. Pts DPOA Vickey Oh ([phone]) is aware and agreeable with discharge plan. Pt will follow up with her Psychiatrist, Dr. Perez ([phone]).
--- NOTE | 2021-03-12 14:49 | NUR ---
ANN MARIE Family Contact DPCORNELIUS Purdyik Adriano ([phone]) contacted ANN MARIE and stated that he is denying the pt to be discharged to SNF and would like her to be discharged home where she will have 24hr caregiving provided. The pt and caregiver Abbey ([phone]) agree with the discharge plan.
--- NOTE | 2021-03-12 14:54 | NUR ---
ANN MARIE Family Contact Pt's caregiver, Abbey ([phone]) agreed to provide transportation for the pt for discharge on 03/12/21. Pt's psychiatrist, Dr. Giles [phone] contacted ANN MARIE and stated he will continue to see the pt post discharge. ANN MARIE included referral information for psychiatrist inside pt's chart.
--- NOTE | 2021-03-12 16:15 | NUR ---
GPS: Nursing Notes: Discharge Notes: Patient is awake and responding to her name, compliant with her medications, following staff directions, argumentative at times, cooperative with nursing care, denies SI/HI, denies AH/VH, denies pain or discomfort at this time, denies SOB, discharge home with caregiver to [address], [place] [address], Picked up by caregiver - Abbey . Patient's DPOA - Vickey Oh informed of discharge by culture room worker. Pt will follow up with her Psychiatrist, Dr. Perez ([phone]) and her own primary care physician for aftercare, instructions and prescription given to patient and caregiver - Abbey, caregiver took patient's belongings with her.
== END 2021-03-12 16:15 | disposition home or self-care (01) | DRG 881 ==
LOC: ER 16:09 → GPS 17:10
PROVIDERS: ADMIT Psychiatry & Neurology Psychiatry; ATTEND Nurse Practitioner Acute Care
DX: F32.A Depression, unspecified (principal); G90.522 Complex regional pain syndrome I of left lower limb; R62.7 Adult failure to thrive; E78.5 Hyperlipidemia, unspecified; I10 Essential (primary) hypertension; Z73.6 Limitation of activities due to disability; F03.90 Unspecified dementia, unspecified severity, without behavioral disturbance, psychotic disturbance, mood disturbance, and anxiety; G62.9 Polyneuropathy, unspecified; K21.9 Gastro-esophageal reflux disease without esophagitis; F41.9 Anxiety disorder, unspecified; G89.4 Chronic pain syndrome; D72.819 Decreased white blood cell count, unspecified; Z68.20 Body mass index [BMI] 20.0-20.9, adult; Z20.822 Contact with and (suspected) exposure to COVID-19; F25.9 Schizoaffective disorder, unspecified; Z79.891 Long term (current) use of opiate analgesic
CPT/HCPCS: 36415; 85025; 87086; 97161; A4663; J3535